=== PATIENT | male | born 1980 | race Caucasian/White ===

== ENCOUNTER 2023-12-22 02:31 | Emergency (ER) | payer MEDICAID ==
[~2023-12-22] VITALS: Ht 188 cm; Wt 87.0 kg
[2023-12-22 02:33] VITALS: BP 118/71; PULSE 78; RESP 16; O2SAT 98
[2023-12-22] MEDS: TETRACAINE 0.5% OPHTH DROPS 4ML BOTHEYE ONE (02:45)
[2023-12-22] MEDS: FLUORESCEIN SODIUM 1MG/STRIP BOTHEYE ONE (02:45)
[2023-12-22] MEDS ORDERED: ERYT1OIN6 EACHEYE (03:49)
[2023-12-22] MEDS ORDERED: ACET-2708 MT (03:49)
[2023-12-22 04:00] VITALS: TEMP 97.8
[2023-12-22] MEDS: ACETAMINOPHEN 325MG TABLET PO ONE (04:00)
== END 2023-12-22 04:54 | disposition home or self-care (01) ==
LOC: ER 02:37
DX: H16.9 Unspecified keratitis (principal); Z00.00 Encounter for general adult medical examination without abnormal findings
CPT/HCPCS: 99283

== ENCOUNTER 2024-04-03 22:30 | Emergency (ER) | payer MEDICAID, OTHER ==
[~2024-04-03] VITALS: Ht 172.7 cm; Wt 80.0 kg
[~2024-04-03 22:30] MED LIST: ACET-2708 MT; ERYT1OIN6 EACHEYE
[2024-04-03 22:34] VITALS: O2SAT 96
[2024-04-04 03:37] LABS: BASOPHILS % 1.3 % (0.0-2.0); EOSINOPHILS % 6.7 % (0.0-5.0); HEMATOCRIT. 37.6 % (42.0-52.0); HEMOGLOBIN. 12.8 g/dL (14.0-18.0); LYMPHOCYTES % 32.8 % (20.0-50.0); MEAN CORPUSCULAR HEMOGLOBIN 32.1 pg (28.0-32.0); MEAN CORPUSCULAR HGB CONC 34.1 g/dL (31.0-37.0); MEAN CORPUSCULAR VOLUME 94.2 fL (80.0-94.0); MEAN PLATELET VOLUME 8.5 fl (7.4-10.4); MONOCYTES % 9.7 % (2.0-8.0); NEUTROPHILS % 49.5 % (40.0-76.0); PLATELET 136 x1000/uL (130-400); RED BLOOD CELL COUNT 3.99 mill/uL (4.7-6.1); RED CELL DISTRIBUTION WIDTH 13.4 % (11.6-14.6); WHITE BLOOD COUNT 4.9 x1000/uL (4.5-11.0)
[2024-04-04 03:45] LABS: CHLORIDE 107 mEq/L (98-107); POTASSIUM 4.1 mEq/L (3.5-5.1); SODIUM 139 mEq/L (136-145)
[2024-04-04 03:46] LABS: CARBON DIOXIDE 32 mEq/L (21-32)
[2024-04-04 03:51] LABS: CREATININE 0.9 mg/dL (0.6-1.3); GLUCOSE 91 mg/dL (70-105); UREA NITROGEN BLOOD 15 mg/dL (9-23)
[2024-04-04 03:53] LABS: ACETAMINOPHEN < 2 ug/mL (10-30)
[2024-04-04 03:54] LABS: ETHANOL BLOOD < 10 mg/dL (<10)
[2024-04-04 16:25] LABS: *AMPHETAMINES SCREEN URINE NEGATIVE (NEGATIVE); *BARBITURATES SCREEN URINE NEGATIVE (NEGATIVE); *BENZODIAZEPINES SCREEN URINE NEGATIVE (NEGATIVE); *COCAINE SCREEN URINE NEGATIVE (NEGATIVE)
[2024-04-04 16:26] LABS: CANNABINOID URINE SCREEN NEGATIVE (NEGATIVE); ECSTASY MDMA SCREEN URINE NEGATIVE (NEGATIVE); METHADONE URINE SCREEN NEGATIVE (NEGATIVE); OPIATES URINE SCREEN NEGATIVE (NEGATIVE); PHENCYCLIDINE URINE SCREEN NEGATIVE (NEGATIVE)
[2024-04-04] MEDS: OLANZAPINE 5MG TABLET ODT PO SCH (21:55)
[2024-04-04] MEDS: NICOTINE 21MG PATCH TD ONE (22:31)
[2024-04-05] MEDS ORDERED: LORAZEPAM 2MG/ML INJ IM ONE (18:00)
[2024-04-05] MEDS: LORAZEPAM 2MG/ML INJ IM NR (21:15)
[2024-04-05] MEDS: BUPRENORPHINE 8MG SL TABLET SL ONE (21:45)
[2024-04-05] MEDS: NICOTINE 21MG PATCH TD ONE (21:45)
[2024-04-06 08:31] VITALS: BP 111/74; PULSE 67; RESP 16; TEMP 98.4
== END 2024-04-06 11:24 | disposition home or self-care (01) ==
LOC: ER 22:30
DX: R45.850 Homicidal ideations (principal); Z59.01 Sheltered homelessness; Z20.822 Contact with and (suspected) exposure to COVID-19
CPT/HCPCS: 80305; 80048; 80307; 80329; 80320; 85025; 36415; 99285; 87426; 96372; J2060; Z7610; G0480